=== PATIENT | female | born 2005 | race Hispanic/Latino ===

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

== ENCOUNTER 2024-02-11 13:42 | Emergency (ER) | payer MEDICAID, OTHER ==
[~2024-02-11] VITALS: Ht 162.6 cm; Wt 79.4 kg
[2024-02-11] MEDS ORDERED: CEPH500B PO (14:00)
[2024-02-11] MEDS ORDERED: METH4TAB3 PO (14:03)
[2024-02-11] MEDS: DEXAMETHASONE SOD PHOSPHATE 4 MG/ML 1ML VIAL IM ONE (14:31)
[2024-02-11] MEDS: CEFTRIAXONE 1G VIAL IM ONE (14:31)
[2024-02-11 14:49] VITALS: BP 121/72; PULSE 80; RESP 14; O2SAT 98
== END 2024-02-11 14:55 | disposition home or self-care (01) ==
LOC: EDH 13:42
DX: T63.441A Toxic effect of venom of bees, accidental (unintentional), initial encounter (principal); L03.114 Cellulitis of left upper limb; Y92.89 Other specified places as the place of occurrence of the external cause
CPT/HCPCS: 99284; 96372 ×2; J1100; J0696

== ENCOUNTER 2024-04-13 14:35 | Emergency (ER) | payer MEDICAID ==
[~2024-04-13] VITALS: Ht 162.6 cm; Wt 76.2 kg
[~2024-04-13 14:35] MED LIST: CEPH500B PO; METH4TAB3 PO
[2024-04-13 15:16] LABS: BASOPHILS # (AUTO) 0.01 K/uL (0.00-0.20); BASOPHILS % (AUTO) 0.1 % (0.0-5.0); EOSINOPHILS # (AUTO) 0.04 K/uL (0.00-0.70); EOSINOPHILS % (AUTO) 0.5 % (0.0-8.0); HEMATOCRIT 37.1 % (36-48); IMMATURE GRANULOCYTE ABSOLUTE 0.03 K/uL (0-1); LYMPHOCYTES # (AUTO) 1.8 K/uL (1.0-4.8); LYMPHOCYTES % (AUTO) 23.8 % (21.0-51.0); MEAN CORPUSCULAR HEMOGLOBIN 30.9 pg (27.0-33.0); MEAN CORPUSCULAR HGB CONC 36.7 g/dL (32.0-36.0); MEAN CORPUSCULAR VOLUME 84.3 fL (80-100); MONOCYTES # (AUTO) 0.5 K/uL (0.1-1.0); NEUTROPHILS # (AUTO) 5.3 K/uL (1.8-7.7); NEUTROPHILS % (AUTO) 69.2 % (40.0-77.0); PLATELET COUNT (AUTO) 205 K/uL (130-400); RED CELL DISTRIBUTION WIDTH 12.5 % (11.0-15.5); WHITE BLOOD COUNT (AUTO) 7.7 K/uL (4.8-10.8)
[2024-04-13 15:17] LABS: APPEARANCE,URINE CLEAR (CLEAR); BILIRUBIN,URINE NEGATIVE (NEGATIVE); COLOR,URINE YELLOW (YELLOW); GLUCOSE, URINE (UA) NEGATIVE (NEGATIVE); KETONES,URINE 5 mg/dL (NEGATIVE); LEUKOCYTE ESTERASE ,URINE NEGATIVE Leu/uL (NEGATIVE); NITRATE,URINE NEGATIVE (NEGATIVE); OCCULT BLOOD,URINE SMALL (NEGATIVE); PROTEIN,URINE 10 mg/dL (NEGATIVE); UROBILINOGEN,URINE 3 mg/dL (0.2-1.0)
[2024-04-13 15:18] LABS: ADD UA MICROSCOPIC YES
[2024-04-13 15:28] LABS: BACTERIA,URINE RARE /HPF (None Seen); MUCUS,URINE RARE LPF (None Seen); RBC,URINE 0-1 /HPF (0-1); SQUAMOUS EPITHELIAL CELL,UR RARE /HPF (0-2)
[2024-04-13 16:07] LABS: CREATININE 0.4 mg/dL (0.5-1.0); POTASSIUM 3.1 mmol/L (3.5-5.1)
[2024-04-13 17:03] VITALS: BP 134/77; PULSE 88; RESP 16; TEMP 98.8; O2SAT 97
== END 2024-04-13 17:14 | disposition home or self-care (01) ==
LOC: EDH 14:35
DX: O20.8 Other hemorrhage in early pregnancy (principal); R10.2 Pelvic and perineal pain; Z3A.11 11 weeks gestation of pregnancy; Z79.899 Other long term (current) drug therapy; Z98.890 Other specified postprocedural states
CPT/HCPCS: 36415; 76801; 80048; 81001; 84702; 85025; 86850; 86900; 86901

== ENCOUNTER 2024-06-30 10:40 | Observation (INO) | payer MEDICAID ==
[~2024-06-30] VITALS: Ht 162.6 cm; Wt 79.4 kg
--- NOTE | 2024-06-30 11:12 | EKG ---
[facility] Test Date: 2024-06-30 Test Time: 11:05:29 Pat Name: CARLIE GORDON Department: ED Room: Gender: F Analysis Tester: [id number] : 2005 Requested By: APRIL HANEY Order Number: [id number] Reading MD: Aysha Lorenzana Measurements Intervals [place] Rate: 93 P: 44 [place]: 138 QRS: 35 QRSD: 91 T: 1 QT: 324 QTc: 404 Interpretive Statements Sinus rhythm No previous ECG available for comparison Electronically Signed On 07-02-2024 17:34:13 RN PROVIDER RELATIONS by Aysha Lorenzana Please click the below link to view image of tracing.
--- NOTE | 2024-06-30 11:57 | ERN ---
ED Note History of Present Illness Stated Complaint: 5 MONTHS , ELEVATED HEARTRATE Chief Complaint: OB>20 weeks gest. Time Seen by MD: 10:41 Dictation: Patient is a 18-year-old female with 22 weeks POG came to the ED with a chief complaint of high heart rate. Patient had palpitations and heart rate of 155 beats per minute yesterday and she monitored it over the day and it ranged from 130s to 140s, so patient came in today for a wellness check as she is . Patient denies shortness of breath, fever, chest pain. AT 0.2 WEEKS BY DATE Allergies: Coded Allergies: No Known Drug Allergies (Unverified Allergy, Unknown, 06/13/19) Home Meds Active Scripts Methylprednisolone (Medrol) 4 Mg Tab.ds.pk, 4 MG PO AD, #1 UNIT Prov:ARISTEO CALVO MD 02/11/24 Methylprednisolone (Medrol) 4 Mg Tab.ds.pk, 4 MG PO AD, #1 UNIT Prov:ARISTEO CALVO MD 02/11/24 Cephalexin Monohydrate (Keflex) 500 Mg Cap, 500 MG PO BID for 7 Days, #14 CAP Prov:ARISTEO CALVO MD 02/11/24 Past Medical History Past Medical History: No Pertinent History Surgical History: Other Surgical History Other: LEFT KNEE SX LMP: Jan 29, 2024 : 1 Para: 0 Aborts: 0 Review of System Dictation Constitutional-no chills, weight loss/gain, fever Eyes-no injury, pain, redness and discharge ENT-no injury, pain, swelling Cardiovascular no chest pain, edema. Patient had palpitations yesterday Respiratory no shortness of breath, cough, wheezing Abdomen/GI-no abdominal pain, diarrhea, constipation, vomiting, nausea Back no injury and pain Genitourinary no injury, bleeding and discharge Musculoskeletal/extremities no injury, deformity Skin no rash, discoloration Neuro-no headache, weakness, numbness, tingling, seizures, tremors Psych-no suicidal ideation, homicidal ideation, hallucinations, depression, anxiety, memory loss Initial Vital Sign VS Vital Signs Date Time Temp Pulse Resp B/P (MAP) Pulse Ox O2 Delivery O2 Flow Rate FiO2 06/30/24 10:49 97.9 95 16 130/84 96 Room Air 0 06/30/24 12:42 21 Physical Exam Dictation General-patient is awake alert and oriented Head/neck-normocephalic, atraumatic Eyes-PERRL, EOMI, vision at baseline Neck-trachea midline, supple, no nuchal rigidity Cardiovascular-RRR, normal S1/S2, no MRG is, no JVD Respiratory-no distress, wheezing, rales, rhonchi Abdomen-no tenderness, guarding, soft, nondistended Skin warm, dry, normal turgor, no rash Musculoskeletal/extremities pulses equal, no cyanosis Neuro-COA X 4, GCS 15, strength 5/5, CN 2-12 intact Psych-normal behavior, mood and affect normal Results (Laboratory/Radiology) Laboratory/Radiology Laboratory Tests Test 06/30/24 11:44 06/30/24 11:52 Urine Color LIGHT-YELLOW (YELLOW) Urine Appearance CLOUDY (CLEAR) H Urine pH 7.5 (5.0-8.0) Urine Specific [place] 1.009 (1.001-1.031) Urine Protein NEGATIVE mg/dL (NEGATIVE) Urine Glucose (UA) NEGATIVE mg/dL (NEGATIVE) Urine Ketones NEGATIVE mg/dL (NEGATIVE) Urine Occult Blood NEGATIVE (NEGATIVE) Urine Nitrate NEGATIVE (NEGATIVE) Urine Bilirubin NEGATIVE mg/dL (NEGATIVE) Urine Urobilinogen 0.2 mg/dL (0.2-1.0) Urine Leukocyte Esterase NEGATIVE [place]/uL Urine RBC 2-5 /HPF (0-1) H Urine WBC 2-5 /HPF (0-1) H Urine Squamous Epithelial Cells MOD /HPF (0-2) Urine Amorphous Crystals (Auto) RARE /LPF (None Seen) Urine Bacteria MANY /HPF (None Seen) White Blood Count 6.6 K/uL (4.8-10.8) Red Blood Count 3.86 MIL/uL (4.00-5.50) L Hemoglobin 12.0 g/dL (12.0-16.0) Hematocrit 34.4 % (36-48) L Mean Corpuscular Volume 89.1 fL (80-100) Mean Corpuscular Hemoglobin 31.1 pg (27.0-33.0) Mean Corpuscular Hemoglobin Concent 34.9 g/dL (32.0-36.0) Red Cell Distribution Width 12.9 % (11.0-15.5) Platelet Count 195 K/uL (130-400) Mean Platelet Volume 10.3 fL (7.5-10.5) Immature Granulocyte % (Auto) 2.0 % (0-1) H Neutrophils (%) (Auto) 76.3 % (40.0-77.0) Lymphocytes (%) (Auto) 11.2 % (21.0-51.0) L Monocytes (%) (Auto) 9.4 % (3.0-13.0) Eosinophils (%) (Auto) 0.6 % (0.0-8.0) Basophils (%) (Auto) 0.5 % (0.0-5.0) Neutrophils # (Auto) 5.0 K/uL (1.8-7.7) Lymphocytes # (Auto) 0.7 K/uL (1.0-4.8) L Monocytes # (Auto) 0.6 K/uL (0.1-1.0) Eosinophils # (Auto) 0.04 K/uL (0.00-0.70) Basophils # (Auto) 0.03 K/uL (0.00-0.20) Absolute Immature Granulocyte (auto 0.13 K/uL (0-1) Nucleated Red Blood Cells 0.0 % (0.0-0.19) Prothrombin Time 10.1 SEC (9.6-11.6) Prothromb Time International Ratio <= 0.93 (0.85-1.15) Sodium Level 140 mmol/L (136-145) Potassium Level 3.6 mmol/L (3.5-5.1) Chloride Level 104 mmol/L (101-111) Carbon Dioxide Level 26 mmol/L (21-32) Blood Urea Nitrogen 4 mg/dL (7-18) L Creatinine 0.3 mg/dL (0.5-1.0) L Glomerular Filtration Rate Calc 156 mL/min (>90) Random Glucose 85 mg/dL (70-105) Total Calcium 8.7 mg/dL (8.5-10.1) Total Creatine Kinase 22 U/L (21-232) Troponin I High Sensitivity < 4 ng/L (4-50) L B-Type Natriuretic Peptide < 5 pg/mL (0-100) ED Course ED Course Orders Procedure Category Date Status Time 12 Lead Ekg Tracing- EKG 06/30/24 Complete Technical 10:53 Cbc With Differential LAB 06/30/24 Complete 11:29 Prothrombin Time With LAB 06/30/24 Complete INR 11:29 B-Type Natriuretic LAB 06/30/24 Complete Peptide 11:29 12 Lead Ekg Tracing- EKG 06/30/24 Logged Technical 11:29 Creatine Kinase, Total LAB 06/30/24 Complete 11:29 Troponin I High LAB 06/30/24 Complete Sensitivity 11:29 Urinalysis Profile LAB 06/30/24 Complete 11:29 Basic Metabolic Panel LAB 06/30/24 Complete 11:29 Culture Urine YUNIEL 06/30/24 In Process 12:22 Vital Signs Date Time Temp Pulse Resp B/P (MAP) Pulse Ox O2 Delivery O2 Flow Rate FiO2 06/30/24 12:42 98.8 91 18 111/74 99 Room Air* 0 21 06/30/24 10:49 97.9 95 16 130/84 96 Room Air 0 Medical Decision Making MDM INITIAL IMPRESSION ANXIETY, VERTIGO, AT 22 WEEKS BY DATE Initial history and physical concerning for dehydration, sinus tachycardia, stress related Contributing medical problems: None I have reviewed the triage nursing notes and vital signs. Initial plan: Laboratory evaluation. DATA REVIEW I have reviewed additional NN, repeat VS, and monitoring where indicated Heart rate, blood pressure, and O2 saturation are acceptable . ED COURSE Interventions: Investigations done Reassessment:. DISPOSITION Final diagnostic impression:[ ] I discussed my findings, clinical impression and treatment recommendations with [the patient.] I have reviewed the social factors contributing to the patient's presentation and disposition planning. [ ] My final plan for disposition was made based upon -[mild] risk of complications and potential morbidity of the patient's condition. -Discussion with [the patient] regarding management options[.] [-Consultation with] [diposition] PATIENT WILL BE DISCHARGED TO FOLLOW UP WITH OBGYN FOR FURTHER EVALUATION SINCE SHE WAS GREATER THAN 20 WEEKS BY DATE. DX & DISP Disposition: Discharge Departure Impression: Primary Impression: Anxiety Additional Impression: greater than 20 weeks gestation Condition: Stable Referrals: PRAVEENA WHITE MD (PCP) Time of Disposition: 13:06 DEMARCUS THAKKAR MD Jun 30, 2024 11:57 APRIL HANEY MD Jun 30, 2024 13:06
[2024-06-30 12:02] LABS: APPEARANCE,URINE CLOUDY (CLEAR); BILIRUBIN,URINE NEGATIVE (NEGATIVE); COLOR,URINE LIGHT-YELLOW (YELLOW); GLUCOSE, URINE (UA) NEGATIVE (NEGATIVE); KETONES,URINE NEGATIVE (NEGATIVE); LEUKOCYTE ESTERASE ,URINE NEGATIVE Leu/uL (NEGATIVE); NITRATE,URINE NEGATIVE (NEGATIVE); OCCULT BLOOD,URINE NEGATIVE (NEGATIVE); PH,URINE 7.5 (5.0-8.0); PROTEIN,URINE NEGATIVE (NEGATIVE); UROBILINOGEN,URINE 0.2 mg/dL (0.2-1.0)
[2024-06-30 12:03] LABS: BASOPHILS # (AUTO) 0.03 K/uL (0.00-0.20); BASOPHILS % (AUTO) 0.5 % (0.0-5.0); EOSINOPHILS # (AUTO) 0.04 K/uL (0.00-0.70); EOSINOPHILS % (AUTO) 0.6 % (0.0-8.0); HEMATOCRIT 34.4 % (36-48); IMMATURE GRANULOCYTE ABSOLUTE 0.13 K/uL (0-1); LYMPHOCYTES # (AUTO) 0.7 K/uL (1.0-4.8); LYMPHOCYTES % (AUTO) 11.2 % (21.0-51.0); MEAN CORPUSCULAR HEMOGLOBIN 31.1 pg (27.0-33.0); MEAN CORPUSCULAR HGB CONC 34.9 g/dL (32.0-36.0); MEAN CORPUSCULAR VOLUME 89.1 fL (80-100); MONOCYTES # (AUTO) 0.6 K/uL (0.1-1.0); MONOCYTES % (AUTO) 9.4 % (3.0-13.0); NEUTROPHILS % (AUTO) 76.3 % (40.0-77.0); PLATELET COUNT (AUTO) 195 K/uL (130-400); RED BLOOD CELL COUNT(AUTO) 3.86 MIL/uL (4.00-5.50); RED CELL DISTRIBUTION WIDTH 12.9 % (11.0-15.5); WHITE BLOOD COUNT (AUTO) 6.6 K/uL (4.8-10.8)
[2024-06-30 12:12] LABS: ADD UA MICROSCOPIC YES
[2024-06-30 12:16] LABS: INR <= 0.93 (0.85-1.15); PROTHROMBIN TIME 10.1 SEC (9.6-11.6)
[2024-06-30 12:16] LABS: BACTERIA,URINE MANY /HPF (None Seen); MUCUS,URINE RARE LPF (None Seen); SQUAMOUS EPITHELIAL CELL,UR MOD /HPF (0-2)
[2024-06-30 12:19] LABS: CREATININE 0.3 mg/dL (0.5-1.0); POTASSIUM 3.6 mmol/L (3.5-5.1)
[2024-06-30 12:42] VITALS: BP 111/74; PULSE 91; RESP 18; TEMP 98.7; O2SAT 99
[2024-06-30 12:48] LABS: B-TYPE NATRIURETIC PEPTIDE < 5 pg/mL (0-100)
== END 2024-06-30 13:55 | disposition home or self-care (01) ==
LOC: EDH 10:40 → LDH 13:18
PROVIDERS: ADMIT Obstetrics & Gynecology; ATTEND Obstetrics & Gynecology
DX: O99.342 Other mental disorders complicating pregnancy, second trimester (principal); F41.9 Anxiety disorder, unspecified; Z3A.22 22 weeks gestation of pregnancy; Z79.899 Other long term (current) drug therapy
CPT/HCPCS: 82550; 84484; 80048; 83880; 85025; 85610; 87086; 81001; 36415; 93005; G0379; G0378

== ENCOUNTER 2025-06-08 17:56 | Emergency (ER) | payer MEDICAID ==
[~2025-06-08] VITALS: Ht 162.6 cm; Wt 72.6 kg
--- NOTE | 2025-06-08 19:09 | HMCIMG ---
EXAM: CR right Knee, 3 View. CLINICAL HISTORY: pain COMPARISON: None provided. FINDINGS: BONES: No acute fracture or aggressive appearing osseous lesion. JOINTS: Mild tricompartmental degenerative changes Small to moderate joint effusion SOFT TISSUES: The soft tissues are unremarkable. MISCELLANEOUS: Prior ACL repair IMPRESSION: 1. Mild tricompartmental degenerative changes 2. Small to moderate joint effusion 3. Prior ACL repair /[place]
[2025-06-08 19:37] VITALS: BP 125/78; PULSE 85; RESP 18; TEMP 98.6; O2SAT 99
--- NOTE | 2025-06-08 19:48 | ERN ---
ED Note History of Present Illness Stated Complaint: LT KNEE Chief Complaint: Knee Injury/Swelling Time Seen by MD: 17:58 Time Seen by Midlevel: 17:58 Dictation: The patient is a 19-year-old female with history of torn ACL with repair to her left knee who presents to the emergency department with complains of left knee pain after she accidentally twisted it yesterday while playing with her boyfriend. Patient denies any other injuries. Allergies: Coded Allergies: No Known Drug Allergies (Unverified Allergy, Unknown, 06/13/19) Home Meds Active Scripts Methylprednisolone (Medrol) 4 Mg Tab.ds.pk, 4 MG PO AD, #1 UNIT Prov:ARISTEO CALVO MD 02/11/24 Methylprednisolone (Medrol) 4 Mg Tab.ds.pk, 4 MG PO AD, #1 UNIT Prov:ARISTEO CALVO MD 02/11/24 Cephalexin Monohydrate (Keflex) 500 Mg Cap, 500 MG PO BID for 7 Days, #14 CAP Prov:ARISTEO CALVO MD 02/11/24 Past Medical History Past Medical History: No Pertinent History Surgical History: Other Surgical History Other: LEFT KNEE SX : 1 Para: 0 Aborts: 0 RN Note Reviewed/Agreed w/PFSH: Yes Review of System Dictation Constitutional: Negative for fever,chills, and weight loss Eyes: Negative for injury, pain,redness, and discharge ENT: Negative for injury,pain or swelling Cardiovascular: Negative for chest pain, palpitations, and edema Respiratory: Negative for shortness of breath, cough, and wheezing, Abdomen/GI: Negative for abdominal pain, nausea, vomiting, diarrhea, and constipation Back: Negative for injury and pain : Negative for injury, bleeding and discharge MS/Extremity: positive for Knee pain Skin: Negative for rash, and discoloration Neuro: Negative for headache, weakness, numbness, tingling, and seizure Psych: Negative for suicide ideation, homicidal ideation, and hallucinations Initial Vital Sign VS Vital Signs Date Time Temp Pulse Resp B/P (MAP) Pulse Ox O2 Delivery O2 Flow Rate FiO2 06/08/25 17:57 98.6 98 18 120/69 98 06/08/25 19:37 Room Air* 0 21 Physical Exam Dictation Vital Signs reviewed General Appearance: Alert, oriented x 3, no acute distress, well developed, nourished. Head and Face: non-traumatic. Eyes: PERRL, pink conjunctivas, eyelid no trauma, anterior chamber with arcus senilis. Ears: Pinnas intact and no signs of trauma or erythema ear canals clear and no discharge TM no erythema Nose: No discharge, no bleeding. Oropharynx: Mouth normal, tongue pink. pharynx clear,no erythema, tonsils no exudates, no abscesses noted, mucous membrane moist Neck: Supple, non-tender, no thyromegaly, no masses, no JVD, no bruits Breast:Deferred Chest:No tenderness, no crepitus, no paradoxical movement, no retractions Lungs:Clear, well-ventilated, symmetric, no rales, no wheezing, no rhonchi, no stridor, good breath sounds bilaterally Heart: Regular rate, regular rhythm, no murmur, no gallops Vascular: no peripheral edema, dorsalis pedis 3+ Abdomen: Soft, positive bowel sounds, nondistended, no guarding, nontender, no rebound, no masses no hepatomegaly, no splenomegaly, no Ramos's sign, no hernias. Rectal: Deferred Genital: Deferred Neurological: Normal speech, motor function intact, sensory function intact Musculoskeletal: Neck nontender, full range of motion, back nontender, full range of motion, Extremities: nontender, full range of motion , mild swelling to left knee, no open wounds, full rom Skin: Color pink, dry, no turgor, no rash, no lacerations, no abrasions, no contusions. Lymphatic: Deferred Results (Laboratory/Radiology) Laboratory/Radiology REASON: pain ORDERING PHYSICIAN: LISA FINCH [employer]URER PROCEDURE: KNEE 3V LT - KNEE 3VWS LT EXAM: CR right Knee, 3 View. CLINICAL HISTORY: pain COMPARISON: None provided. FINDINGS: BONES: No acute fracture or aggressive appearing osseous lesion. JOINTS: Mild tricompartmental degenerative changes Small to moderate joint effusion SOFT TISSUES: The soft tissues are unremarkable. MISCELLANEOUS: Prior ACL repair IMPRESSION: 1. Mild tricompartmental degenerative changes 2. Small to moderate joint effusion 3. Prior ACL repair /[place] Labs Reviewed?: Yes ED Course ED Course Orders Procedure Category Date Status Time Knee 3vws Lt RAD 06/08/25 Resulted 18:13 Ketorolac 60mg/2ml PHA 06/08/25 Complete (Toradol 60mg/2ml) 18:30 ,Urine Test LAB 06/08/25 Logged 18:13 Acetaminophen 500mg PHA 06/08/25 Complete Tab (Tylenol 500mg T 20:00 Knee Immobilizer JASEN 06/08/25 Complete 19:41 Crutches W/Training CPOE 06/08/25 Transmitted (Er) 19:41 Current Medications Medications (Trade) Dose Ordered Sig/Julio C Route PRN Reason Start Time Stop Time Status Last Admin Dose Admin Acetaminophen (TYLenol 500MG TAB) 1,000 mg ONCE ONCE PO 06/08/25 20:00 06/08/25 20:01 DC 06/08/25 20:08 Ketorolac Tromethamine (toRADol 60MG/ 2ML) 60 mg ONCE ONCE IM 06/08/25 18:30 06/08/25 19:38 DC Vital Signs Date Time Temp Pulse Resp B/P (MAP) Pulse Ox O2 Delivery O2 Flow Rate FiO2 06/08/25 19:37 98.6 85 18 125/78 99 Room Air* 0 21 06/08/25 17:57 98.6 98 18 120/69 98 Medical Decision Making MDM The patient is a 19-year-old female with history of torn ACL with repair to her left knee who presents to the emergency department with complains of left knee pain after she accidentally twisted it yesterday while playing with her boyfriend. Patient denies any other injuries. X-ray showed mild tricompartamental degenerative changes, small to moderate joint effusion. No fractures. Patient is neurovascular intact, has been ambulating since yesterday, full rom, Patient reports she will follow up with her orthopedic surgeon. Differential diagnosis: Knee dislocation, knee fracture, knee sprain Need for hospitalization: Patient does not meet criteria for hospitalization. There are no social concerns with this patient. DX & DISP Disposition: Discharge Departure Impression: Primary Impression: Left knee sprain Additional Impression: Joint effusion, knee Condition: Stable Additional Instructions: Your x-rays showed no fractures but did show a small to moderate joint effusion. Please continue to ice and elevate your leg. Follow up with your orthopedic surgeon as soon as possible. Further activity that can further caused injury. If anything worsens please return to ER. FOLLOW-UP WITH PRIMARY CARE PROVIDER IN 1 TO 2 DAYS. TAKE MEDICATIONS DIRECTED HERE IN THE EMERGENCY ROOM. OKAY TO CONTINUE HOME MEDICATIONS UNLESS OTHERWISE DISCUSSED DURING YOUR VISIT IN THE EMERGENCY ROOM TODAY. RETURN TO YOUR NEAREST EMERGENCY ROOM IF SYMPTOMS WORSEN OR IF THERE IS NO IMPROVEMENT. CALL 911 IF YOU NEED IMMEDIATE ASSISTANCE. TAKE TYLENOL [id number] NEEDED AND IF NO CONTRAINDICATIONS ARE PRESENT. INCREASE ORAL HYDRATION. A WOUND CULTURE OR URINE CULTURE WAS ORDERED HERE IN THE EMERGENCY ROOM DEPARTMENT PLEASE FOLLOW-UP WITH PRIMARY CARE PROVIDER AND ADVISE THEM TO GET REPEAT PORTS FROM OUR FACILITY. IF YOU HAD ANY MARYELLEN WRAP/SPLINTS THAT WERE APPLIED HERE, PLEASE DO NOT REMOVE THEM UNTIL YOU SEE YOUR PRIMARY CARE OR SPECIALTY. Referrals: AJ TADEO (PCP) Time of Disposition: 19:48 I have reviewed the case, and I agree with, Diagnosis and Plan LISA FINCH Jun 08, 2025 19:48 ANUP HAMILTON DO Jun 08, 2025 20:53
== END 2025-06-08 20:20 | disposition home or self-care (01) ==
LOC: EDH 17:56
DX: S83.92XA Sprain of unspecified site of left knee, initial encounter (principal); X50.1XXA Overexertion from prolonged static or awkward postures, initial encounter; Y93.89 Activity, other specified; Y92.89 Other specified places as the place of occurrence of the external cause; Y99.8 Other external cause status
CPT/HCPCS: 99283; 29505; 73562; J1885